=== PATIENT | male | born 1985 | race Caucasian/White ===

== ENCOUNTER 2018-07-06 22:41 | Emergency (ER) | payer OTHER ==
--- NOTE | 2018-07-07 00:57 | XRay Report ---
PROCEDURE: XR CHEST ROUTINE 2V TECHNIQUE: PA and lateral views of the chest were obtained. HISTORY: chestpain COMPARISONS: None FINDINGS: There are no acute infiltrates or congestion. The heart size is normal. Pleural fluid is not seen. Th e bones and soft tissues appear normal. IMPRESSION: No acute cardiopulmonary process.. This document is electronically signed by Nilson Bates MD., July 07 2018 12:55:57 AM ET
[2018-07-07 00:59] LABS: Basophils % (Auto) 0.8 % (0.0-1.8); Eosinophils % (Auto) 7.2 % (0.0-4.3); Hemoglobin 16.7 gm/dl (11.8-15.2); Lymphocytes % (Auto) 30.3 % (13.4-35.0); Mean Corpuscular HGB Conc 35 % (32-34); Mean Corpuscular Volume 95 fl (84-94); Monocytes % (Auto) 6.7 % (0.0-7.3); Platelet Count 177 K/mm3 (140-440); Red Blood Count 5.06 M/mm3 (3.65-5.03); Red Cell Distribution Width 12.6 % (13.2-15.2)
[2018-07-07 01:00] LABS: Basophils # (Auto) 0.1 K/mm3 (0.0-0.1); Eosinophils # (Auto) 0.5 K/mm3 (0.0-0.4); Monocytes # (Auto) 0.4 K/mm3 (0.0-0.8)
[2018-07-07] MEDS ORDERED: ALUM-MAG HYDROX-SIMETH 200-200-20MG/5ML PO ONE (03:44)
[2018-07-07] MEDS ORDERED: LIDOCAINE VISCOUS 2% PO ONE (03:44)
--- NOTE | 2018-07-07 03:49 | Emergency Department Report ---
ED Abdominal Pain HPI - General Chief Complaint: Abdominal Pain Stated Complaint: ABD/CHEST PAIN Time Seen by Provider: 07/07/18 03:31 Source: patient Mode of arrival: Ambulatory Limitations: Language Barrier - History of Present Illness Initial Comments: Assessment 33-year-old male presents for epigastric pain worsening over the last week pain described as 4/10 substernal pain is exacerbated by movement pain is relieved by nothing tried patient denies nausea vomiting there is no fever no chills MD Complaint: abdominal pain -: Gradual Location: diffuse Radiation: none Migration to: no migration Severity: moderate Severity scale (0 -10): 4 Quality: aching Consistency: constant, intermittent Improves With: nothing, rest Worsens With: nothing Context: foreign travel Associated Symptoms: denies other symptoms, nausea - Related Data Previous Rx's Medication Instructions Recorded Last Taken Type Esomeprazole Magnesium [Nexium 40 mg PO DAILY 30 Days #30 02/20/18 Unknown Rx 24Hr] tablet. Metoclopramide [Reglan] 10 mg PO QID 10 Days #30 tab 07/07/18 Unknown Rx Omeprazole 40 mg PO DAILY #30 capsule. 07/07/18 Unknown Rx Allergies Allergy/AdvReac Type Severity Reaction Status Date / Time No Known Allergies Allergy Unverified 02/20/18 22:06 ED Review of Systems ROS: Stated complaint: ABD/CHEST PAIN Other details as noted in HPI Constitutional: denies: chills, fever Eyes: denies: eye pain, eye discharge, vision change ENT: as per HPI, throat pain, epistaxis Respiratory: denies: cough, shortness of breath, wheezing Cardiovascular: denies: chest pain, palpitations Endocrine: no symptoms reported Gastrointestinal: denies: abdominal pain, nausea, diarrhea Genitourinary: denies: urgency, dysuria Musculoskeletal: denies: back pain, joint swelling, arthralgia Skin: denies: rash, lesions Neurological: denies: headache, weakness, numbness, paresthesias, confusion, abnormal gait, vertigo Psychiatric: denies: anxiety, depression Hematological/Lymphatic: as per HPI ED Past Medical Hx - Past Medical History Previous Medical History?: Yes Hx GERD: Yes Additional medical history: Gastritis - Surgical History Past Surgical History?: No - Social History Smoking Status: Never Smoker Substance Use Type: None - Medications Home Medications: Home Medications Medication Instructions Recorded Confirmed Last Taken Type Esomeprazole Magnesium [Nexium 40 mg PO DAILY 30 Days #30 02/20/18 Unknown Rx 24Hr] tablet. Metoclopramide [Reglan] 10 mg PO QID 10 Days #30 tab 07/07/18 Unknown Rx Omeprazole 40 mg PO DAILY #30 capsule. 07/07/18 Unknown Rx ED Physical Exam - General Limitations: Language Barrier General appearance: alert, in no apparent distress - Head Head exam: Present: atraumatic, normocephalic - Eye Eye exam: Present: normal appearance, PERRL, EOMI - ENT ENT exam: Present: normal orophraynx, mucous membranes moist, TM's normal bilaterally - Neck Neck exam: Present: normal inspection, full ROM. Absent: tenderness, lymphadenopathy, thyromegaly - Respiratory Respiratory exam: Present: normal lung sounds bilaterally, wheezes, prolonged expiratory. Absent: respiratory distress - Cardiovascular Cardiovascular Exam: Present: regular rate, normal rhythm, tachycardia, normal heart sounds. Absent: systolic murmur, diastolic murmur, rubs, gallop - GI/Abdominal GI/Abdominal exam: Present: soft, normal bowel sounds - Rectal Rectal exam: Present: deferred, normal inspection - External exam: Present: normal external exam. Absent: swelling - Extremities Exam Extremities exam: Present: normal inspection, full ROM, normal capillary refill, joint swelling. Absent: tenderness, calf tenderness - Back Exam Back exam: Present: normal inspection, tenderness. Absent: CVA tenderness (L) - Neurological Exam Neurological exam: Present: alert, oriented X3 - Psychiatric Psychiatric exam: Present: normal affect (he), normal mood - Skin Skin exam: Present: warm, dry, intact, normal color. Absent: rash ED Course Vital Signs 07/06/18 07/07/18 22:47 00:10 Temperature 98.4 F 98.4 F Pulse Rate 63 71 Respiratory 18 18 Rate Blood Pressure 132/93 132/93 O2 Sat by Pulse 97 97 Oximetry ED Medical Decision Making - Lab Data Result diagrams: 07/07/18 00:34 Laboratory Last Values WBC 6.5 K/mm3 (4.5-11.0) 07/07/18 00:34 RBC 5.06 M/mm3 (3.65-5.03) H 07/07/18 00:34 Hgb 16.7 gm/dl (11.8-15.2) H 07/07/18 00:34 Hct 48.0 % (35.5-45.6) H 07/07/18 00:34 MCV 95 fl (84-94) H 07/07/18 00:34 MCH 33 pg (28-32) H 07/07/18 00:34 MCHC 35 % (32-34) H 07/07/18 00:34 RDW 12.6 % (13.2-15.2) L 07/07/18 00:34 Plt Count 177 K/mm3 (140-440) 07/07/18 00:34 Lymph % (Auto) 30.3 % (13.4-35.0) 07/07/18 00:34 [place] % (Auto) 6.7 % (0.0-7.3) 07/07/18 00:34 Eos % (Auto) 7.2 % (0.0-4.3) H 07/07/18 00:34 Baso % (Auto) 0.8 % (0.0-1.8) 07/07/18 00:34 Lymph # 2.0 K/mm3 (1.2-5.4) 07/07/18 00:34 [place] # 0.4 K/mm3 (0.0-0.8) 07/07/18 00:34 Eos # 0.5 K/mm3 (0.0-0.4) H 07/07/18 00:34 Baso # 0.1 K/mm3 (0.0-0.1) 07/07/18 00:34 Seg Neutrophils % 55.0 % (40.0-70.0) 07/07/18 00:34 Seg Neutrophils # 3.6 K/mm3 (1.8-7.7) 07/07/18 00:34 - EKG Data EKG shows normal: axis, intervals, QRS complexes, ST-T waves Rate: normal - EKG Data When compared to previous EKG there are: changes noted - Radiology Data Radiology results: report reviewed, image reviewed Referring Physician: ED DOC Patient Name: ISHMAEL SADLER Date of : 1985 Sex: Male Report Date: 2018-07-07 Report Status: Finalized Findings [facility] [address] [place] [address] XRay Report Signed Patient: ISHMAEL SADLER MR#: [id number] : 1985 Acct:[id number] Age/Sex: 33 / M ADM Date: 07/06/18 Loc: ED Attending Dr: Ordering Physician: HARRISON KIRKPATRICK MD Date of Service: 07/07/18 Procedure(s): XR chest routine 2V Accession Number(s): [id number] cc: HARRISON KIRKPATRICK MD Fluoro Time In Minutes: PROCEDURE: XR CHEST ROUTINE 2V TECHNIQUE: PA and lateral views of the chest were obtained. HISTORY: chestpain COMPARISONS: None FINDINGS: There are no acute infiltrates or congestion. The heart size is normal. Pleural fluid is not seen. The bones and soft tissues appear normal. IMPRESSION: No acute cardiopulmonary process.. This document is electronically signed by Nilson Bates MD., July 07 2018 12:55:57 AM ET Transcribed By: RB Dictated By: NILSON BATES MD Electronically Authenticated By: NILSON BATES MD Signed Date/Time: 07/07/1856 DD/ TD/TT: 07/07/1846 - Medical Decision Making water time, Critical care attestation.: If time is entered above; I have spent that time in minutes in the direct care of this critically ill patient, excluding procedure time. ED Disposition Clinical Impression: Acid reflux Qualifiers: Esophagitis presence: without esophagitis Qualified Code(s): K21.9 - Gastro- esophageal reflux disease without esophagitis Disposition: DC-01 TO HOME OR SELFCARE Is pt being admited?: No Does the pt Need Aspirin: No Condition: Poor Instructions: Esophageal Spasm (ED) Prescriptions: Omeprazole 40 mg PO DAILY #30 capsule. Metoclopramide [Reglan] 10 mg PO QID 10 Days #30 tab Referrals: [facility] [Provider Group] - 3-5 Days Forms: Work/School Release Form(ED) Time of Disposition: 04:32 Print Language: SLOVENIAN
[2018-07-08 17:59] VITALS: BP 118/74
== END 2018-07-07 05:16 | disposition home or self-care (01) ==
LOC: ED 22:41
DX: K21.9 Gastro-esophageal reflux disease without esophagitis (principal)
CPT/HCPCS: 71046; 85025; 93005; 93010